=== PATIENT | male | born 1990 | race Caucasian/White ===

== ENCOUNTER 2020-01-06 18:02 | Outpatient (REF) | payer OTHER, SELFPAY | END 2020-01-06 18:03 | disposition home or self-care (01) | LOC: HO.LNP 18:02 | PROVIDERS: Visit Provider Family Medicine | DX: Z20.828 Contact with and (suspected) exposure to other viral communicable diseases (principal) | CPT/HCPCS: U0003 ==

== ENCOUNTER 2021-05-27 20:26 | Observation (INO) | payer OTHER, SELFPAY ==
--- NOTE | 2021-05-27 | ECG_ITS ---
Test Reason : CHEST PAIN Blood Pressure : / mmHG Vent. Rate : 095 BPM Atrial Rate : 095 BPM P-R Int : 134 ms QRS Dur : 088 ms QT Int : 348 ms P-R-T Axes : 000 -27 155 degrees QTc Int : 437 ms Sinus rhythm with occasional Premature ventricular complexes Lateral T wave inversions Abnormal ECG No previous ECGs available Referred By: Generic ED Physician Electronically Signed By:Wan Geronimo
--- NOTE | ~2021-05-27 | XR_ITS ---
EXAMINATION: PORTABLE CHEST 1 VIEW CLINICAL INFORMATION: CHEST PAIN . COMPARISON: No recent pertinent prior studies are available for comparison. TECHNIQUE: Portable frontal view of the chest was obtained. FINDINGS: The lungs are well expanded. No focal infiltrate, effusion, edema, or pneumothorax. Cardiac and mediastinal silhouettes are within normal limits for technique. No acute bony abnormality seen. XR/XR chest 1V IMPRESSION: No evidence of acute disease.
[2021-05-27 22:04] VITALS: BP 151/100; PULSE 86; RESP 20; TEMP 36.7; O2SAT 96; BMI 47.0
[2021-05-27 22:38] LABS: MANUAL DIFF FLAG NO
[2021-05-27 22:39] LABS: Basophils Percent Auto 0.5 % (0-2); Eosinophils Absolute Auto 0.1 X10*3/uL (0.0-0.4); Hematocrit 43.2 % (42.0-52.0); Hemoglobin 14.6 g/dl (14.0-18.0); Imm Gran Abs Auto 0.01 X10*3/uL (0.00-0.03); Imm Gran Pct Auto 0.2 % (0.0-0.4); Lymphocytes Percent Auto 31.5 % (20-40); Mean Corpuscular HGB Conc 33.8 g/dl (31.0-36.0); Mean Corpuscular Volume 85.9 fL (80.0-98.0); Monocytes Absolute Auto 0.4 X10*3/uL (0.1-1.2); Monocytes Percent Auto 6.3 % (2-11); Neutrophils Absolute Auto 3.8 x10*3/uL (2.0-8.3); Neutrophils Percent Auto 60.5 % (45-73); Platelet Count 265 X10*3/uL (160-400); Red Blood Count 5.03 X10*6/uL (4.60-5.80); Red Cell Distribution Width 12.6 % (11.0-16.0); White Blood Count 6.2 X10*3/uL (4.8-10.8)
--- NOTE | 2021-05-27 22:49 | ED.CHESTPAIN ---
HPI - Chest Pain General Chief Complaint: Chest Pain Stated Complaint: chest pain Time Seen by Provider: 05/27/21 22:49 Source: patient Mode of arrival: ambulatory Limitations: no limitations History of Present Illness HPI narrative: ache and pain on the left chest, started last night and then again this morning. Patient states it feels tight. Pain has been continuos since this morning. Mother from cancer, father is still alive got a stent in his heart, older brother is healthy. complaint: chest discomfort Timing of current episode: episodic Onset: during rest Pain location: left chest Pain radiation: none Severity: mild Quality: tightness Related Data Allergies Allergy/AdvReac Type Severity Reaction Status Date / Time No Known Allergies Allergy Verified 05/27/21 22:11 Review of Systems Constitutional: Constitutional: Reports no additional constitutional complaints Eyes: Eyes: Reports no additional eye complaints ENT: Denies dizziness Cardiovascular: Cardiovascular: Reports no additional cardiovascular complaints Respiratory: Respiratory: Reports as per HPI Gastrointestinal: Gastrointestinal: Reports no additional gastrointestinal complaints Musculoskeletal: Musculoskeletal: Reports no additional musculoskeletal complaints Integumentary/Breasts: Skin/Breast: Denies rash Neurologic: Reports system reviewed and no additional complaints, except as documented, Denies dizziness and Denies Sensory deficit (Neuro) Psychiatric: Psychiatric: Denies anxiety [facility] Past Medical History Medical History No known health problems Social History Social History Advance Directives: No Advance Directives Information Provided: No Physical Exam Vital Signs: Vital Signs: Last Vital Signs Temp 98.0 F 05/28/21 00:51 Pulse 80 05/28/21 04:51 Resp 15 05/28/21 04:51 BP 120/72 05/28/21 04:51 Pulse Ox 94 05/28/21 04:51 BMI result Body Mass Index 47.0 Const: General: healthy appearing Nutritional Appearance: obese Orientation/consciousness: oriented to person and patient oriented x3 Limitations: no limitations HEENT: Head: Yes normal to inspection Ears: external ears normal General nose exam: Normal external nose present Mouth: Normal oral and palatal mucosa present and oropharynx normal Throat: Yes posterior oropharynx normal Eyes: General: appearance normal, both eyes and all related structures Neck: Other: supple Neck: Yes normal visual inspection Chest: Chest palpation & inspection: normal inspection of the chest Resp: Auscultation: clear to auscultation bilaterally Cardio: Jugular venous distension: no JVD Rate: regular rate Rhythm: regular rhythm Heart sounds: S1 normal heart sound present and S2 normal heart sound present GI: Inspection: Yes normal to inspection Palpation (GI): Soft to palpation, nontender and No hepatosplenomegaly present Auscultation: normal bowel sounds : General: Yes no CVA tenderness Back/Spine/Pelvis: Back: no CVA tenderness Skin: General skin exam: no rashes or lesions noted Neuro: General: oriented to person and patient oriented x3 Cranial nerves: Yes CN's II-XII intact bilaterally Motor exam (neuro): 5/5 motor strength present throughout Sensory Exam: No Sensory deficit (Neuro) Extrem: General: Yes normal to inspection Psych: Appearance: grossly normal Course Reevaluation(s) Reevaluation #1: Patient with dynamic EKG changes despite flat and negative troponin. His major risk factor is obesity with sedantary lifestyle will admit to tele Time: 01:30 MDM - Chest Pain Lab Data Result diagrams: 05/27/21 22:33 05/27/21 22:33 Labs: Lab Results 05/27/21 05/27/21 05/27/21 Range/Units 22:24 22:33 22:33 WBC 6.2 (4.8-10.8) X10*3/uL RBC 5.03 (4.60-5.80) X10*6/uL Hgb 14.6 (14.0-18.0) g/dl Hct 43.2 (42.0-52.0) % MCV 85.9 (80.0-98.0) fL MCH 29.0 (27.0-33.0) pg MCHC 33.8 (31.0-36.0) g/dl RDW 12.6 (11.0-16.0) % Plt Count 265 (160-400) X10*3/uL MPV 10.0 (9.4-12.4) fL Immature Gran % (Auto) 0.2 (0.0-0.4) % Neut % (Auto) 60.5 (45-73) % Lymph % (Auto) 31.5 (20-40) % [place] % (Auto) 6.3 (2-11) % Eos % (Auto) 1.0 (0-4) % Baso % (Auto) 0.5 (0-2) % Lymph # (Auto) 2.0 (1.2-4.9) X10*3/uL [place] # (Auto) 0.4 (0.1-1.2) X10*3/uL Eos # (Auto) 0.1 (0.0-0.4) X10*3/uL Baso # (Auto) 0.0 (0.0-0.2) X10*3/uL Abs Immat Gran (auto) 0.01 (0.00-0.03) X10*3/uL Absolute Neuts (auto) 3.8 (2.0-8.3) x10*3/uL Absolute Nucleated RBC 0.000 (0.0-0.012) X10*3/uL Nucleated RBC % (auto) 0.0 (0.0-0.2) /100WBC D-Dimer High Sensitivty NG/ML Sodium 140 (135-145) mmol/L Potassium 3.5 (3.3-5.1) mmol/L Chloride 106 (96-108) mmol/L Carbon Dioxide 25 (22-29) mmol/L Anion Gap 13 (12-20) BUN 16 (9-16) mg/dL Creatinine 1.05 (0.5-1.4) mg/dL Estim Creat Clear Calc 171.4 Estimated GFR > 60 Random Glucose 118 H (60-115) mg/dL Calcium 9.5 (8.4-10.2) mg/dL Total Bilirubin 0.2 (0.0-1.0) mg/dL AST 16 (5-37) U/L ALT 21 (0-40) U/L Alkaline Phosphatase 118 H (39-117) U/L Troponin I High Sens (<3.5-35.0) ng/L Total Protein 6.8 (6.5-8.0) g/dL Albumin 4.2 (3.5-5.0) g/dL COVID-19 (ESME) Negative (Negative) COVID-19 Clin Com See Note 05/27/21 05/28/21 05/28/21 Range/Units 22:33 00:05 01:49 WBC (4.8-10.8) X10*3/uL RBC (4.60-5.80) X10*6/uL Hgb (14.0-18.0) g/dl Hct (42.0-52.0) % MCV (80.0-98.0) fL MCH (27.0-33.0) pg MCHC (31.0-36.0) g/dl RDW (11.0-16.0) % Plt Count (160-400) X10*3/uL MPV (9.4-12.4) fL Immature Gran % (Auto) (0.0-0.4) % Neut % (Auto) (45-73) % Lymph % (Auto) (20-40) % [place] % (Auto) (2-11) % Eos % (Auto) (0-4) % Baso % (Auto) (0-2) % Lymph # (Auto) (1.2-4.9) X10*3/uL [place] # (Auto) (0.1-1.2) X10*3/uL Eos # (Auto) (0.0-0.4) X10*3/uL Baso # (Auto) (0.0-0.2) X10*3/uL Abs Immat Gran (auto) (0.00-0.03) X10*3/uL Absolute Neuts (auto) (2.0-8.3) x10*3/uL Absolute Nucleated RBC (0.0-0.012) X10*3/uL Nucleated RBC % (auto) (0.0-0.2) /100WBC D-Dimer High Sensitivty < 150 NG/ML Sodium (135-145) mmol/L Potassium (3.3-5.1) mmol/L Chloride (96-108) mmol/L Carbon Dioxide (22-29) mmol/L Anion Gap (12-20) BUN (9-16) mg/dL Creatinine (0.5-1.4) mg/dL Estim Creat Clear Calc Estimated GFR Random Glucose (60-115) mg/dL Calcium (8.4-10.2) mg/dL Total Bilirubin (0.0-1.0) mg/dL AST (5-37) U/L ALT (0-40) U/L Alkaline Phosphatase (39-117) U/L Troponin I High Sens < 3.5 < 3.5 (<3.5-35.0) ng/L Total Protein (6.5-8.0) g/dL Albumin (3.5-5.0) g/dL COVID-19 (ESME) (Negative) COVID-19 Clin Com 05/28/21 Range/Units 01:49 WBC (4.8-10.8) X10*3/uL RBC (4.60-5.80) X10*6/uL Hgb (14.0-18.0) g/dl Hct (42.0-52.0) % MCV (80.0-98.0) fL MCH (27.0-33.0) pg MCHC (31.0-36.0) g/dl RDW (11.0-16.0) % Plt Count (160-400) X10*3/uL MPV (9.4-12.4) fL Immature Gran % (Auto) (0.0-0.4) % Neut % (Auto) (45-73) % Lymph % (Auto) (20-40) % [place] % (Auto) (2-11) % Eos % (Auto) (0-4) % Baso % (Auto) (0-2) % Lymph # (Auto) (1.2-4.9) X10*3/uL [place] # (Auto) (0.1-1.2) X10*3/uL Eos # (Auto) (0.0-0.4) X10*3/uL Baso # (Auto) (0.0-0.2) X10*3/uL Abs Immat Gran (auto) (0.00-0.03) X10*3/uL Absolute Neuts (auto) (2.0-8.3) x10*3/uL Absolute Nucleated RBC (0.0-0.012) X10*3/uL Nucleated RBC % (auto) (0.0-0.2) /100WBC D-Dimer High Sensitivty NG/ML Sodium (135-145) mmol/L Potassium (3.3-5.1) mmol/L Chloride (96-108) mmol/L Carbon Dioxide (22-29) mmol/L Anion Gap (12-20) BUN (9-16) mg/dL Creatinine (0.5-1.4) mg/dL Estim Creat Clear Calc Estimated GFR Random Glucose (60-115) mg/dL Calcium (8.4-10.2) mg/dL Total Bilirubin (0.0-1.0) mg/dL AST (5-37) U/L ALT (0-40) U/L Alkaline Phosphatase (39-117) U/L Troponin I High Sens (<3.5-35.0) ng/L Total Protein (6.5-8.0) g/dL Albumin (3.5-5.0) g/dL COVID-19 (ESME) Negative (Negative) COVID-19 Clin Com See Note ECG Data ECG #1: Attestation: I personally reviewed and interpreted this ECG as follows: Interpretation: sinus rate 90, PVC, flipped ts I and AVL, V4-V6 ECG #2: Attestation: I personally reviewed and interpreted this ECG as follows: Interpretation: sinus 74, lateral twave changes resolved Discharge Plan Discharge Clinical Impression: Chest pain, Acute electrocardiogram changes Patient Disposition: Admitted As Inpatient
[2021-05-27 23:02] LABS: Alanine Aminotransferase 21 U/L (0-40); Albumin Level 4.2 g/dL (3.5-5.0); Alkaline Phosphatase 118 U/L (39-117); Anion Gap 13 (12-20); Aspartate Amino Transferase 16 U/L (5-37); Bilirubin Total 0.2 mg/dL (0.0-1.0); Blood Urea Nitrogen 16 mg/dL (9-16); Calcium 9.5 mg/dL (8.4-10.2); Carbon Dioxide 25 mmol/L (22-29); Chloride 106 mmol/L (96-108); Creatinine Clr Calc Pharmacy 171.4; Estimated Glomerular Filt Rate > 60; Glucose Random 118 mg/dL (60-115); Potassium 3.5 mmol/L (3.3-5.1); Sodium 140 mmol/L (135-145); Total Protein 6.8 g/dL (6.5-8.0)
[2021-05-27 23:06] LABS: COVID-19 Test Negative (Negative)
[2021-05-27 23:08] LABS: Troponin-I High Sensitivity < 3.5 ng/L (<3.5-35.0)
[2021-05-27] MEDS: Aspirin Enteric Coated 325 MG TABLET.DR PO (23:20)
[2021-05-27] MEDS: Nitroglycerin 0.4 MG TAB.SUBL SUBLINGUAL ×2 (23:25→23:50)
[2021-05-28 00:34] LABS: Troponin-I High Sensitivity < 3.5 ng/L (<3.5-35.0)
--- NOTE | 2021-05-28 00:48 | ECG_ITS ---
Test Reason : CHEST PAIN Blood Pressure : / mmHG Vent. Rate : 074 BPM Atrial Rate : 074 BPM P-R Int : 150 ms QRS Dur : 086 ms QT Int : 384 ms P-R-T Axes : 056 001 036 degrees QTc Int : 426 ms Normal sinus rhythm Nonspecific T wave abnormality Abnormal ECG When compared with ECG of 27-MAY-2021 20:37, Premature ventricular complexes are no longer Present Nonspecific T wave abnormality has replaced inverted T waves in Lateral leads Referred By: Abdirahman Alva Electronically Signed By:Wan Geronimo
[2021-05-28 00:51] VITALS: BP 111/71; PULSE 78; RESP 19; TEMP 36.7; O2SAT 95
[2021-05-28] MEDS: Nitroglycerin 2 % Oint 1 GM Packet 1 INCH TRANSDERMA (01:54)
[2021-05-28 01:57] VITALS: BP 117/77; PULSE 80; RESP 18; O2SAT 96
[2021-05-28 02:02] LABS: D Dimer High Sensitivity < 150 NG/ML
[2021-05-28 02:09] LABS: COVID-19 Test Negative (Negative)
[2021-05-28 04:51] VITALS: BP 120/72; PULSE 80; RESP 15; O2SAT 94
[2021-05-28] MEDS: Acetaminophen 325 MG TABLET 975 MG PO (05:24)
[2021-05-28 07:17] VITALS: BP 114/45; PULSE 64; RESP 12; O2SAT 93
--- NOTE | 2021-05-28 09:00 | P.HPHOSP_ITS ---
History of Present Illness Date of Service: 05/28/21 Chief Complaint: chest pressure This is a 30 yo M who endorses no PMH and presents to [facility] ED on 05/27/21 with complaints of substernal chest pain which occurred initially on the night prior to ED arrival. Patient reports that he was in his usual state of health and when he was going to bed 2 nights prior to admission, he noticed chest pain which he describes as a tightness / dull aching. The patient did not travel any where and was not significant. He did not make much of it and went to bed that night. He reports that a similar pain reoccured throughout the day and hence he deiced to come to the ED for evaluation. He denie sany prior such pain. 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 He does not have this type of pain with exertion. In regards to family history of premature CAD, the patient does report a history of CAD in his father, but he was diagnosed with CAD in his 60s. Upon arrival to the ED, the patient's HS trop-I were negative x 2; His presenting pain had resolved. However, his EKG which initially showed some T wave abnormalities in the lateral leads followed by non-specific changes. He was given ASA 325, nitorpaste and admission was requested. The patient is seen this AM in the ED. He reports his chest pain has resolved. He does report one episode of emesis while in the ED. Review of Systems Review of Systems: negative except HPI PMFSH Medical History (Updated 05/28/21 @ 09:29 by Vijay Osorio MD) No known health problems No pertinent past medical history Pertinent family history: CAD in his father in his 60s Social History (Updated 05/28/21 @ 09:29 by Vijay Osorio MD) Alcohol intake: never Patient Tobacco Use Status: Never used Tobacco Use of substances other than those prescribed or required for medical reasons: No Advance Directives: No Advance Directives Information Provided: No Meds Allergies Allergy/AdvReac Type Severity Reaction Status Date / Time No Known Allergies Allergy Verified 05/27/21 22:11 Active Medications: Current Medications Pharmacy Consult (Consult Rx Perform Med Rec) 1 each MISCELLANE ONCE PRN PRN Reason: Consult order Sodium Chloride (0.9 % Sodium Chloride Flush 3 Ml Syringe) [facility] Home Medications Medication Instructions Recorded Confirmed Last Taken Type No Known Home Meds 05/28/21 05/28/21 Unknown History Physical Exam Vital Signs and Narrative: Vital Signs: Last Vital Signs Temp 98.0 F 05/28/21 00:51 Pulse 64 05/28/21 07:17 Resp 12 05/28/21 07:17 BP 114/45 L 05/28/21 07:17 Pulse Ox 93 05/28/21 07:17 BMI result Body Mass Index 47.0 Const: Other: Constitutional - Awake and Alert, No apparent distress Eyes - PERRLA, EOMI Cardiovascular - S1S2, RRR, No edema Respiratory - Normal lung expansion, Normal respiratory effort, No respiratory distress, CTA bilaterally Gastrointestinal - NT / ND; +BS; No rebound or guarding - No CVA tenderness Extremities - no calf tenderness bilaterally, no swelling Musculoskeletal - Normal inspection, normal ROM Skin - Warm/Dry Neurological - Alert & oriented x3, No focal deficit Psychological - Appropriate affect Results Labs CBC and Chem 7: 05/27/21 22:33 05/27/21 22:33 Labs: Laboratory Results - last 24 hr 05/27/21 05/27/21 05/27/21 22:24 22:33 22:33 MCV 85.9 MCH 29.0 MCHC 33.8 RDW 12.6 Plt Count 265 MPV 10.0 Immature Gran % (Auto) 0.2 Neut % (Auto) 60.5 Lymph % (Auto) 31.5 [place] % (Auto) 6.3 Eos % (Auto) 1.0 Baso % (Auto) 0.5 Lymph # (Auto) 2.0 [place] # (Auto) 0.4 Eos # (Auto) 0.1 Baso # (Auto) 0.0 Abs Immat Gran (auto) 0.01 Absolute Neuts (auto) 3.8 Absolute Nucleated RBC 0.000 Nucleated RBC % (auto) 0.0 D-Dimer High Sensitivty Anion Gap 13 Estim Creat Clear Calc 171.4 Estimated GFR > 60 Random Glucose 118 H Calcium 9.5 Total Bilirubin 0.2 AST 16 ALT 21 Alkaline Phosphatase 118 H Troponin I High Sens Total Protein 6.8 Albumin 4.2 COVID-19 (ESME) Negative COVID-19 Clin Com See Note 05/27/21 05/28/21 05/28/21 22:33 00:05 01:49 MCV MCH MCHC RDW Plt Count MPV Immature Gran % (Auto) Neut % (Auto) Lymph % (Auto) [place] % (Auto) Eos % (Auto) Baso % (Auto) Lymph # (Auto) [place] # (Auto) Eos # (Auto) Baso # (Auto) Abs Immat Gran (auto) Absolute Neuts (auto) Absolute Nucleated RBC Nucleated RBC % (auto) D-Dimer High Sensitivty < 150 Anion Gap Estim Creat Clear Calc Estimated GFR Random Glucose Calcium Total Bilirubin AST ALT Alkaline Phosphatase Troponin I High Sens < 3.5 < 3.5 Total Protein Albumin COVID-19 (ESME) COVID-19 Clin Com 05/28/21 01:49 MCV MCH MCHC RDW Plt Count MPV Immature Gran % (Auto) Neut % (Auto) Lymph % (Auto) [place] % (Auto) Eos % (Auto) Baso % (Auto) Lymph # (Auto) [place] # (Auto) Eos # (Auto) Baso # (Auto) Abs Immat Gran (auto) Absolute Neuts (auto) Absolute Nucleated RBC Nucleated RBC % (auto) D-Dimer High Sensitivty Anion Gap Estim Creat Clear Calc Estimated GFR Random Glucose Calcium Total Bilirubin AST ALT Alkaline Phosphatase Troponin I High Sens Total Protein Albumin COVID-19 (ESME) Negative COVID-19 Clin Com See Note Imaging Radiologist's Impressions: Impressions Chest X-Ray 05/27/21 22:45 IMPRESSION: No evidence of acute disease. Assessment and Plan (1) Chest pain: Status: Acute Plan This is a 30 yo M with no significant PMH who presents with intermittent chest p ain of 2 days duration. His HS trop-I are negative, but he does have some EKG changes. He will observed and cardiology will be consulted. 1. Chest pain now resolved Does not seem typical in nature Possibly GI related HS trop-I neg x 2; EKG non-specific Only risk factor his is weight monitor on tele and get cardiology evaluation 2. Morbid Obesity outpatient diet / weight management program 3. GERD H2 blockers Full Code DVT pptx, low risk -- early ambulation Quality Stroke Does the patient have a stroke diagnosis?: No VTE Prior VTE?: No VTE Risk Level:: Medical - low VTE Device Contraindication: Treatment Not Indicated VTE Drug Contraindication: Treatment Not Indicated
--- NOTE | 2021-05-28 09:01 | PHA.MEDREC ---
Pharmacy Consult ? Medication Reconciliation Pharmacy has completed the medication reconciliation.
[2021-05-28 09:07] VITALS: BP 125/72; PULSE 73; RESP 15; O2SAT 98
--- NOTE | 2021-05-28 09:47 | PC.NURSE ---
Nitro paste removed per MD, VSS BP 134/71 HR 82 and regular denies any chest pain. Normal sinus rhythm Moderate amount of vomitus noted, MD aware and antacids are ordered.
[2021-05-28] MEDS: Famotidine 20 MG TABLET PO (11:17)
[2021-05-28 14:25] VITALS: BP 134/71; PULSE 82; RESP 18; TEMP 36.8; O2SAT 98
--- NOTE | 2021-05-28 15:04 | PM.CNCAR ---
History of Present Illness History of Present Illness Date of Service: 05/28/21 Requesting physician: Vijay Osorio Chief complaint: chest pain Narrative: 30-year-old gentleman who is here for chest pain. He has background history of morbid obesity. He also has off and on acid reflux. He has experienced a pressure-like feeling in his chest yesterday which was present for approximately 8-10 hours before he decided to come to the emergency department. ECG did not show any specific changes. Biomarkers were normal. He said during the course of his admission the chest discomfort went away. He has been asymptomatic since then. He has been walking the hallways without any symptoms. He does not smoke or drink. His father had coronary disease and angioplasty when he was in late 60s. [facility] Past Medical History Medical History (Updated 05/28/21 @ 15:10 by Vijay Osorio MD) No known health problems No pertinent past medical history Social History Social History (Updated 05/28/21 @ 09:29 by Vijay Osorio MD) Alcohol intake: never Patient Tobacco Use Status: Never used Tobacco Meds Allergies Allergy/AdvReac Type Severity Reaction Status Date / Time No Known Allergies Allergy Verified 05/27/21 22:11 Active Medications: Current Medications Pharmacy Consult (Consult Rx Perform Med Rec) 1 each MISCELLANE ONCE PRN PRN Reason: Consult order Sodium Chloride (0.9 % Sodium Chloride Flush 3 Ml Syringe) 3 ml IVFLUSH [facility] Home Medications Medication Instructions Recorded Confirmed Last Taken Type No Known Home Meds 05/28/21 05/28/21 Unknown History Physical Exam Vital Signs: Vital Signs: Last Vital Signs Temp 98.3 F 05/28/21 14:25 Pulse 82 05/28/21 14:25 Resp 18 05/28/21 14:25 BP 134/71 05/28/21 14:25 Pulse Ox 98 05/28/21 14:25 BMI result Body Mass Index 47.0 GENERAL APPEARANCE: in no acute distress, pleasant. NECK: no carotid bruit, no jugular venous distention. SKIN: no suspicious lesions, warm and dry. HEART: no murmurs, regular rate and rhythm. LUNGS: clear to auscultation bilaterally. ABDOMEN: soft, nontender. EXTREMITIES: no edema. PERIPHERAL PULSES: equal. NEUROLOGIC: No gross deficits, AAO X 3 Objective Labs and Meds Result diagrams: 05/27/21 22:33 05/27/21 22:33 Lab results: Laboratory Results - last 24 hr 05/27/21 05/27/21 05/27/21 22:24 22:33 22:33 WBC 6.2 RBC 5.03 Hgb 14.6 Hct 43.2 MCV 85.9 MCH 29.0 MCHC 33.8 RDW 12.6 Plt Count 265 MPV 10.0 Immature Gran % (Auto) 0.2 Neut % (Auto) 60.5 Lymph % (Auto) 31.5 [place] % (Auto) 6.3 Eos % (Auto) 1.0 Baso % (Auto) 0.5 Lymph # (Auto) 2.0 [place] # (Auto) 0.4 Eos # (Auto) 0.1 Baso # (Auto) 0.0 Abs Immat Gran (auto) 0.01 Absolute Neuts (auto) 3.8 Absolute Nucleated RBC 0.000 Nucleated RBC % (auto) 0.0 D-Dimer High Sensitivty Sodium 140 Potassium 3.5 Chloride 106 Carbon Dioxide 25 Anion Gap 13 BUN 16 Creatinine 1.05 Estim Creat Clear Calc 171.4 Estimated GFR > 60 Random Glucose 118 H Calcium 9.5 Total Bilirubin 0.2 AST 16 ALT 21 Alkaline Phosphatase 118 H Troponin I High Sens Total Protein 6.8 Albumin 4.2 COVID-19 (ESME) Negative COVID-19 Clin Com See Note 05/27/21 05/28/21 05/28/21 22:33 00:05 01:49 WBC RBC Hgb Hct MCV MCH MCHC RDW Plt Count MPV Immature Gran % (Auto) Neut % (Auto) Lymph % (Auto) [place] % (Auto) Eos % (Auto) Baso % (Auto) Lymph # (Auto) [place] # (Auto) Eos # (Auto) Baso # (Auto) Abs Immat Gran (auto) Absolute Neuts (auto) Absolute Nucleated RBC Nucleated RBC % (auto) D-Dimer High Sensitivty < 150 Sodium Potassium Chloride Carbon Dioxide Anion Gap BUN Creatinine Estim Creat Clear Calc Estimated GFR Random Glucose Calcium Total Bilirubin AST ALT Alkaline Phosphatase Troponin I High Sens < 3.5 < 3.5 Total Protein Albumin COVID-19 (ESME) COVID-19 Clin Com 05/28/21 01:49 WBC RBC Hgb Hct MCV MCH MCHC RDW Plt Count MPV Immature Gran % (Auto) Neut % (Auto) Lymph % (Auto) [place] % (Auto) Eos % (Auto) Baso % (Auto) Lymph # (Auto) [place] # (Auto) Eos # (Auto) Baso # (Auto) Abs Immat Gran (auto) Absolute Neuts (auto) Absolute Nucleated RBC Nucleated RBC % (auto) D-Dimer High Sensitivty Sodium Potassium Chloride Carbon Dioxide Anion Gap BUN Creatinine Estim Creat Clear Calc Estimated GFR Random Glucose Calcium Total Bilirubin AST ALT Alkaline Phosphatase Troponin I High Sens Total Protein Albumin COVID-19 (ESME) Negative COVID-19 Clin Com See Note Imaging Radiologist's impression: Impressions Chest X-Ray 05/27/21 22:45 IMPRESSION: No evidence of acute disease. Assessment and Plan (1) Chest pain: Status: Acute Plan 30-year-old gentleman who is presenting for chest discomfort. He is describing a pressure like feeling on the left side of his chest which persisted for approximately 8-10 hours he yesterday before he presented to the emergency department. He ECG did not show any dynamic changes. His high sensitivity troponin levels are normal. Overall the clinical story seems quite atypical and with prolonged chest discomfort and negative biomarker this is likely noncardiac chest discomfort. In any case we have discussed about potential options and decided to let him go home and arrange an outpatient exercise stress test for him. I have also advised him to try PPI [id number] to see if this is related to acid reflux. Thank you for allowing me to participate in the care of your patient. Please feel free to contact me if you have any questions. Procedures Date of Service Date of Service: 05/28/21
--- NOTE | 2021-05-28 15:09 | PM.DS ---
DS: Providers Provider Date of Service: 05/28/21 Date of admission: 05/28/21 08:58 Primary care physician: Unknown Physician Consults: 05/28/21 08:59 Consult to Cardiology Routine Consulting Provider: Wan Geronimo Reason for consultation: chest pain with ekg changes DS: Diagnosis Discharge Diagnosis (1) Chest pain: Status: Acute (2) Acute electrocardiogram changes: Status: Acute (3) Morbid obesity: Status: Acute DS: Summary Hospital Course Hospital Course: Patient presented with substernal chest pain. His HS troponins were less than 3.5 (negative) x 2. He did, however, have some EKG changes for which he was admitted under obs. He was evaluated by cardiology and deemed stable for discharge. He will have further outpatient follow up with Dr. Geronimo in the cardiology clinic for work up. The patient has been informed that his weight plays a role in heart disease and his overall health. He has been encouraged to follow a healthy diet and lifestyle. The patient is chest free at the time of discharge. Time Spent with Patient Time attestation: Total time spent providing and/or coordinating discharge services: Discharge coordination time: Less than 30 minutes Quality: Safe Use of Opioids Does Pt have an Active Cancer Diagnosis on the Problem List?: No Quality: Stroke Does the patient have a stroke diagnosis?: No Physical Exam Vital Signs: Vital Signs: Last Vital Signs Temp 98.3 F 05/28/21 14:25 Pulse 82 05/28/21 14:25 Resp 18 05/28/21 14:25 BP 134/71 05/28/21 14:25 Pulse Ox 98 05/28/21 14:25 BMI result Body Mass Index 47.0 Const: Other: Constitutional - Awake and Alert, No apparent distress Eyes - PERRLA, EOMI Cardiovascular - S1S2, RRR, No edema Respiratory - Normal lung expansion, Normal respiratory effort, No respiratory distress, CTA bilaterally Gastrointestinal - NT / ND; +BS; No rebound or guarding - No CVA tenderness Extremities - no calf tenderness bilaterally, no swelling Musculoskeletal - Normal inspection, normal ROM Skin - Warm/Dry Neurological - Alert & oriented x3, No focal deficit Psychological - Appropriate affect DS: Data Data Completed and Pending Labs on day of discharge: Laboratory Results - last 24 hr 05/27/21 05/27/21 05/27/21 22:24 22:33 22:33 WBC 6.2 RBC 5.03 Hgb 14.6 Hct 43.2 MCV 85.9 MCH 29.0 MCHC 33.8 RDW 12.6 Plt Count 265 MPV 10.0 Immature Gran % (Auto) 0.2 Neut % (Auto) 60.5 Lymph % (Auto) 31.5 Page % (Auto) 6.3 Eos % (Auto) 1.0 Baso % (Auto) 0.5 Lymph # (Auto) 2.0 Page # (Auto) 0.4 Eos # (Auto) 0.1 Baso # (Auto) 0.0 Abs Immat Gran (auto) 0.01 Absolute Neuts (auto) 3.8 Absolute Nucleated RBC 0.000 Nucleated RBC % (auto) 0.0 D-Dimer High Sensitivty Sodium 140 Potassium 3.5 Chloride 106 Carbon Dioxide 25 Anion Gap 13 BUN 16 Creatinine 1.05 Estim Creat Clear Calc 171.4 Estimated GFR > 60 Random Glucose 118 H Calcium 9.5 Total Bilirubin 0.2 AST 16 ALT 21 Alkaline Phosphatase 118 H Troponin I High Sens Total Protein 6.8 Albumin 4.2 COVID-19 (ESME) Negative COVID-[employer] Com See Note 05/27/21 05/28/21 05/28/21 22:33 00:05 01:49 WBC RBC Hgb Hct MCV MCH MCHC RDW Plt Count MPV Immature Gran % (Auto) Neut % (Auto) Lymph % (Auto) Page % (Auto) Eos % (Auto) Baso % (Auto) Lymph # (Auto) Page # (Auto) Eos # (Auto) Baso # (Auto) Abs Immat Gran (auto) Absolute Neuts (auto) Absolute Nucleated RBC Nucleated RBC % (auto) D-Dimer High Sensitivty < 150 Sodium Potassium Chloride Carbon Dioxide Anion Gap BUN Creatinine Estim Creat Clear Calc Estimated GFR Random Glucose Calcium Total Bilirubin AST ALT Alkaline Phosphatase Troponin I High Sens < 3.5 < 3.5 Total Protein Albumin COVID-19 (ESME) COVID-[employer] Com 05/28/21 01:49 WBC RBC Hgb Hct MCV MCH MCHC RDW Plt Count MPV Immature Gran % (Auto) Neut % (Auto) Lymph % (Auto) Page % (Auto) Eos % (Auto) Baso % (Auto) Lymph # (Auto) Page # (Auto) Eos # (Auto) Baso # (Auto) Abs Immat Gran (auto) Absolute Neuts (auto) Absolute Nucleated RBC Nucleated RBC % (auto) D-Dimer High Sensitivty Sodium Potassium Chloride Carbon Dioxide Anion Gap BUN Creatinine Estim Creat Clear Calc Estimated GFR Random Glucose Calcium Total Bilirubin AST ALT Alkaline Phosphatase Troponin I High Sens Total Protein Albumin COVID-19 (ESME) Negative COVID-19 Clin Com See Note Discharge Plan Discharge Patient Disposition: Home, Self-Care Referrals: Physician,Unknown J [Primary Care Provider] - 1 Week Discharge Medications: No Action No Known Home Meds 0RF Discharge Orders: Discharge Order (Routine); Ordered 05/28/21 Ordered By: Vijay Osorio Diet: advance to usual diet Activity on Discharge: As tolerated Stand Alone Forms: Patient Portal Discharge page Care Plan Goals: To stay healthy and out of the hospital. Health Concerns: Chest pain EKG changes Plan of Treatment: You will need to follow up in the cardi[place] clinic [place] [facility] If you have recurrent chest pain, please return to the hospital immediately. Assessment: see d/c summary
== END 2021-05-28 15:37 | disposition home or self-care (01) ==
LOC: HO.ED 05-28 01:31 → HO.EDOVER 05-28 09:03
PROVIDERS: Admitting Provider Family Medicine; Emergency Provider Emergency Medicine; Visit Provider Family Medicine
DX: R07.9 Chest pain, unspecified (principal); I49.3 Ventricular premature depolarization; R94.31 Abnormal electrocardiogram [ECG] [EKG]; E66.01 Morbid (severe) obesity due to excess calories; K21.9 Gastro-esophageal reflux disease without esophagitis; Z68.42 Body mass index [BMI] 45.0-49.9, adult; Z20.822 Contact with and (suspected) exposure to COVID-19
CPT/HCPCS: 36415; 71045; 80053; 84484; 85025; 85379; 87635; 93005; 99219; 99284; 99285

== ENCOUNTER → 2021-06-06 10:11 | Outpatient (REF) | payer OTHER, SELFPAY ==
--- NOTE | 2021-06-06 10:14 | CA_ITS ---
Acquisition Time: 2021-06-06 10:23:48 Total Exercise Time: 00:07:27 Test Indications: CP, ABN EKG Medications: SEE CHART Protocol: GUILHERME Max HR: 171 BPM 90% of Pred: 189 BPM Max BP: 188/078 mmHG Max Work Load: 9.2 METS Exercise stress test using Guilherme protocol, total of 7 min 27 sec. METS 9.2 MAPHR up to 90 %. Pt tolerated well, denied any anginal sx. EKG with isolated PVC's one couplet seen. Mild [address] depression seen in lead ll and aVF that return to baseline in recovery. Normotensive response to exercise. Test reviewed with Dr. Victoria. Referred By: Wan Geronimo Overread By: Yu Lopez NP
== END ==
LOC: HO.CARD 10:11
PROVIDERS: Visit Provider Internal Medicine Cardiovascular Disease
DX: R07.9 Chest pain, unspecified (principal)
CPT/HCPCS: 93017

== ENCOUNTER → 2021-06-27 11:47 | Outpatient (BNVA) | payer OTHER, SELFPAY | PROVIDERS: Visit Provider Internal Medicine Cardiovascular Disease | DX: R07.9 Chest pain, unspecified (principal); E66.01 Morbid (severe) obesity due to excess calories; Z68.42 Body mass index [BMI] 45.0-49.9, adult | CPT/HCPCS: 99212 ==

== ENCOUNTER 2021-12-24 06:26 | Emergency (ER) | payer OTHER, SELFPAY ==
--- NOTE | ~2021-12-24 | CT_ITS ---
EXAMINATION: CT ABDOMEN AND PELVIS WITH CONTRAST CLINICAL INFORMATION: Abdominal pain with nausea, vomiting and diarrhea. COMPARISON: None TECHNIQUE: Multidetector volumetric images were obtained from the superior aspect of the liver through the pubic symphysis following administration 85 mL of Omnipaque 350 intravenous contrast. Sagittal and coronal reformatted images were obtained on the technologist's workstation. Please note the extreme hepatic dome is excluded from today's imaging parameters. This CT examination was performed using dose optimization techniques as appropriate, variously including the following: *Automated exposure control *Adjustment of mA and/or kV according to patient size (this includes techniques or standardized protocols for targeted exams where dose is matched to indication/reason for exam; i.e. extremities or head) *Use of iterative reconstruction technique DLP: 1368 mGy-cm FINDINGS: Visualized lung bases demonstrate minimal dependent atelectasis. Visualized portions of the liver demonstrates normal size, contour and attenuation. There is a subcentimeter cyst within the anterior right hepatic lobe. The gallbladder is normal in appearance. The pancreas, spleen and adrenal glands are unremarkable. Symmetrically sized kidneys. No hydronephrosis of either kidney. There are a few subcentimeter renal hypodensities which are too small to accurately characterize. Tiny hiatal hernia. The stomach is decompressed. Normal caliber loops of small and large bowel. Normal appendix. Normal caliber abdominal aorta. No retroperitoneal lymphadenopathy. There is a prominent gastrohepatic lymph node which measures 2.3 cm in maximum AP dimension, nonspecific (image 13/25, series 2). There is a small fat-containing umbilical hernia. The bladder is normal in appearance. The prostate gland is normal in size. Tiny fat-containing inguinal hernias bilaterally. No acute osseous abnormality. CT/CT abdomen pelvis w IV con IMPRESSION: No CT evidence for acute abnormality within the abdomen or pelvis. Fleischner guidelines were followed.
[2021-12-24 06:47] VITALS: BP 157/99; PULSE 129; RESP 25; TEMP 36.8; O2SAT 96; BMI 46.8
[2021-12-24 07:33] VITALS: BP 137/95; PULSE 134; RESP 20; TEMP 36.6; O2SAT 96
--- NOTE | 2021-12-24 07:44 | PC.NURSE ---
pt with vomiting noted, clear with some mucus noted. water bottle 1/2 gone, advised not to drink any more water due to vomiting. waiting on md
--- NOTE | 2021-12-24 07:54 | ED_ITS ---
HPI - General Adult General Chief complaint: General Medical Stated complaint: n/v/d Time Seen by Provider: 12/24/21 07:23 History of Present Illness HPI narrative: Patient is a 31-year-old male presents today with having nausea vomiting diarrhea. Generalized malaise. Diarrhea is brown in color. Vomiting is mostly food. Symptoms ongoing for the last 12 hours. Patient complaining of diffuse abdominal pain worse in the epigastric area. There has been no change in diet. There is no travel history. No new antibiotics. Patient from home. Nobody else sick at home. No coughing or congestion upper respiratory symptoms. No headache. Patient vaccinated for COVID. No history of abdominal surgery in the past. Related Data Previous Rx's Medication Instructions Recorded ondansetron 4 mg disintegrating 4 mg PO TID PRN nausea and 12/24/21 tablet vomiting 5 days #10 tabs Allergies Allergy/AdvReac Type Severity Reaction Status Date / Time No Known Allergies Allergy Verified 06/27/21 11:53 Review of Systems Review of Systems: Positive nausea vomiting diarrhea Yes all other systems are reviewed and are negative PMFSH Past Medical History Attestation statement: The following information was validated with the patient. Medical History Chest pain No known health problems No pertinent past medical history Surgical History No pertinent past surgical history Family History Family History Mother Adenoid cystic carcinoma Father H/O heart artery stent Social History Social History Alcohol intake: never Patient Tobacco Use Status: Never used Tobacco Advance Directives: No Advance Directives Information Provided: No Physical Exam ED Vital Signs: Vital Signs - 24 hr 12/24/21 06:47 12/24/21 07:33 12/24/21 10:57 Temperature 98.2 F 97.8 F 98.3 F Pulse Rate 129 H 134 H 110 H Respiratory Rate 25 H 20 18 Blood Pressure 157/99 H 137/95 H 135/69 Pulse Oximetry 96 96 99 Oxygen Delivery Method Room Air Room Air Room Air BMI result Body Mass Index 46.8 Appearance: Alert. Oriented X3. No acute distress. Eyes: Pupils equal, round and reactive to light. ENT: Pharynx normal. Neck: Normal inspection. Neck supple. No lymph nodes noted. No crepitus CVS: Normal heart rate and rhythm. Pulses normal. Normal S1 and S2 Respiratory: No respiratory distress. Breath sounds normal. No Wheezing. No rales Abdomen: Soft and nontender. No rigidity. No distention. good BS x4 Skin: Skin warm and dry. Normal skin color. Normal skin turgor. Extremities: No lower extremity edema. Neurovascular intact to all extremities. No Lacerations. No Rash Neuro: Oriented X 3. No motor deficit. No sensory deficit. Moving all extermities. No slurred speech Medications Administered Discontinued Medications Generic Name Dose Route Start Last Admin Trade Name Freq PRN Reason Stop Dose Admin Sodium Chloride 1,000 mls @ 999 mls/hr 12/24/21 08:00 12/24/21 10:19 Ns IV 12/24/21 09:00 Infused .Q1H1M LUISA Infusion Sodium Chloride 1,000 mls @ 999 mls/hr 12/24/21 08:00 12/24/21 10:06 Ns IV 12/24/21 09:00 999 mls/hr .Q1H1M LUISA Administration Sodium Chloride 1,000 mls @ 999 mls/hr 12/24/21 09:30 12/24/21 10:00 Ns IV 12/24/21 10:30 999 mls/hr .Q1H1M LUISA Administration Iohexol 85 ml 12/24/21 10:38 12/24/21 10:39 Iohexol 350 Mg/Ml 100 Ml Infus..Btl IV 12/24/21 10:39 85 ml ONCE ONE Administration Ondansetron HCl 4 mg 12/24/21 07:52 12/24/21 08:27 Ondansetron Hcl 4 Mg/2 Ml Vial IVPUSH 12/24/21 07:53 4 mg ONCE ONE Administration Medical Decision Making [facility] Narrative Medical decision making narrative: Patient given IV fluids Zofran for nausea. Symptomatic we improved dramatically. CT scan of the abdomen pelvis was negative for any acute evidence of obstruction, abscess perforation after IV fluids patient's heart rate came down is well-appearing repeat abdominal exam soft nontender is tolerating fluids . Will discharge home. Lab Data Lab results reviewed: Yes I reviewed the patient's lab results. Result diagrams: 12/24/21 08:24 12/24/21 09:48 Labs: Lab Results 12/24/21 12/24/21 12/24/21 Range/Units 08:24 09:48 10:45 WBC 9.7 (4.8-10.8) X10*3/uL RBC 5.24 (4.60-5.80) X10*6/uL Hgb 15.6 (14.0-18.0) g/dl Hct 45.5 (42.0-52.0) % MCV 86.8 (80.0-98.0) fL MCH 29.8 (27.0-33.0) pg MCHC 34.3 (31.0-36.0) g/dl RDW 12.7 (11.0-16.0) % Plt Count 245 (160-400) X10*3/uL MPV 10.2 (9.4-12.4) fL Immature Gran % (Auto) 0.2 (0.0-0.4) % Neut % (Auto) 90.2 H (45-73) % Lymph % (Auto) 4.2 L (20-40) % [place] % (Auto) 5.1 (2-11) % Eos % (Auto) 0.0 (0-4) % Baso % (Auto) 0.3 (0-2) % Lymph # (Auto) 0.4 L (1.2-4.9) X10*3/uL [place] # (Auto) 0.5 (0.1-1.2) X10*3/uL Eos # (Auto) 0.0 (0.0-0.4) X10*3/uL Baso # (Auto) 0.0 (0.0-0.2) X10*3/uL Abs Immat Gran (auto) 0.02 (0.00-0.03) X10*3/uL Absolute Neuts (auto) 8.7 H (2.0-8.3) x10*3/uL Absolute Nucleated RBC 0.000 (0.0-0.012) X10*3/uL Nucleated RBC % (auto) 0.0 (0.0-0.2) /100WBC Smear Tech's Comments VERIFIED Sodium 142 (135-145) mmol/L Potassium 4.4 D (3.3-5.1) mmol/L Chloride 104 (96-108) mmol/L Carbon Dioxide 24 (22-29) mmol/L Anion Gap 18 (12-20) BUN 17 H (9-16) mg/dL Creatinine 1.01 (0.5-1.4) mg/dL Estim Creat Clear Calc 176.3 Estimated GFR > 60 Random Glucose 136 H (60-115) mg/dL Calcium 8.7 D (8.4-10.2) mg/dL Total Bilirubin 0.4 (0.0-1.0) mg/dL Direct Bilirubin 0.2 (0.0-0.5) mg/dL AST 15 (5-37) U/L ALT 27 (0-40) U/L Alkaline Phosphatase 117 (39-117) U/L Total Protein 6.9 (6.5-8.0) g/dL Albumin 4.1 (3.5-5.0) g/dL Lipase 11 (8-78) U/L Urine Color Yellow Urine Appearance Clear Urine pH 6.0 (5.0-9.0) Ur Specific [place] 1.020 (1.005-1.025) Urine Protein Negative (Neg-Trace) mg/dL Urine Glucose (UA) Negative (Negative) mg/dL Urine Ketones Negative (Negative) mg/dL Urine Blood Negative (Negative) Urine Nitrite Negative (Negative) Ur Leukocyte Esterase Negative (Negative) Urine RBC 0-2 (0-2) /HPF Urine WBC 0-5 (0-5) /HPF Ur Squamous Epith Cells 0-2 (0-2) /HPF Urine Bacteria None Seen (None Seen) Hyaline Casts 0-2 (0-2) /LPF Discharge Plan Discharge Clinical Impression: Gastroenteritis Patient Disposition: Home, Self-Care Instructions: Gastroenteritis (ED) Prescriptions: New ondansetron 4 mg tablet,disintegrating 4 mg PO TID PRN (Reason: nausea and vomiting) 5 Days Qty: 10 0RF Referrals: Physician,Unknown J [Primary Care Provider] -
[2021-12-24] MEDS: ondansetron HCL 4 MG/2 ML VIAL IVPUSH (08:27)
[2021-12-24] MEDS: 0.9 % Sodium Chloride 1,000 ML 999 ML IV ×3 (08:27→10:06)
[2021-12-24 08:33] LABS: Basophils Percent Auto 0.3 % (0-2); Hematocrit 45.5 % (42.0-52.0); Hemoglobin 15.6 g/dl (14.0-18.0); Imm Gran Abs Auto 0.02 X10*3/uL (0.00-0.03); Imm Gran Pct Auto 0.2 % (0.0-0.4); Lymphocytes Absolute Auto 0.4 X10*3/uL (1.2-4.9); Lymphocytes Percent Auto 4.2 % (20-40); MANUAL DIFF FLAG SCAN; Mean Corpuscular HGB Conc 34.3 g/dl (31.0-36.0); Mean Corpuscular Hemoglobin 29.8 pg (27.0-33.0); Mean Corpuscular Volume 86.8 fL (80.0-98.0); Mean Platelet Volume 10.2 fL (9.4-12.4); Monocytes Absolute Auto 0.5 X10*3/uL (0.1-1.2); Monocytes Percent Auto 5.1 % (2-11); Neutrophils Absolute Auto 8.7 x10*3/uL (2.0-8.3); Neutrophils Percent Auto 90.2 % (45-73); Platelet Count 245 X10*3/uL (160-400); Red Blood Count 5.24 X10*6/uL (4.60-5.80); Red Cell Distribution Width 12.7 % (11.0-16.0); SCAN SMEAR FLAG 1; White Blood Count 9.7 X10*3/uL (4.8-10.8)
[2021-12-24 08:59] LABS: SLIDE REVIEW VERIFIED
[2021-12-24 10:16] LABS: Alanine Aminotransferase 27 U/L (0-40); Albumin Level 4.1 g/dL (3.5-5.0); Alkaline Phosphatase 117 U/L (39-117); Anion Gap 18 (12-20); Aspartate Amino Transferase 15 U/L (5-37); Bilirubin Direct 0.2 mg/dL (0.0-0.5); Bilirubin Total 0.4 mg/dL (0.0-1.0); Blood Urea Nitrogen 17 mg/dL (9-16); Calcium 8.7 mg/dL (8.4-10.2); Carbon Dioxide 24 mmol/L (22-29); Chloride 104 mmol/L (96-108); Creatinine Clr Calc Pharmacy 176.3; Estimated Glomerular Filt Rate > 60; Glucose Random 136 mg/dL (60-115); Lipase 11 U/L (8-78); Potassium 4.4 mmol/L (3.3-5.1); Sodium 142 mmol/L (135-145); Total Protein 6.9 g/dL (6.5-8.0)
[2021-12-24] MEDS: iohexoL 350 MG/ML 100 ML INFUS..BTL 85 ML IV (10:39)
[2021-12-24 10:52] LABS: Appearance Urine Clear; Color Urine Yellow; Glucose Urine UA Negative (Negative); Leukocyte Esterase Urine Negative (Negative); Nitrite Urine Negative (Negative); Urine Blood Negative (Negative); Urine Ketones Negative (Negative); Urine Protein Negative (Neg-Trace)
[2021-12-24 10:57] VITALS: BP 135/69; PULSE 110; RESP 18; TEMP 36.8; O2SAT 99
[2021-12-24 11:18] LABS: Bacteria Urine None Seen (None Seen); Hyaline Casts Urine 0-2 /LPF (0-2); RBC Urine 0-2 /HPF (0-2); Squamous Epithelial Cell Urine 0-2 /HPF (0-2); WBC Urine 0-5 /HPF (0-5)
== END 2021-12-24 12:21 | disposition home or self-care (01) ==
PROVIDERS: Emergency Provider Emergency Medicine Emergency Medical Services
DX: K52.9 Noninfective gastroenteritis and colitis, unspecified (principal); R11.2 Nausea with vomiting, unspecified; E66.01 Morbid (severe) obesity due to excess calories; Z68.42 Body mass index [BMI] 45.0-49.9, adult
CPT/HCPCS: 36415; 74177; 80048; 80076; 81001; 83690; 85025; 96361; 96374; 99283; 99284; J2405; Q9967